=== PATIENT | male | born 2000 | race African-American/Black ===

== ENCOUNTER 2025-06-11 17:48 | Emergency (ER) | payer SELFPAY ==
[2025-06-12 03:41] LABS: Chlam.trachomatis by PCR,Urine Not Detected (NotDetected); GC N.gonorrhoeae PCR,UrineVOID Not Detected (NotDetected)
== END 2025-06-11 18:18 | disposition home or self-care (01) ==
LOC: ERS 17:48
DX: Z11.3 Encounter for screening for infections with a predominantly sexual mode of transmission (principal)
CPT/HCPCS: 87491; 87591; 99283